=== PATIENT | female | born 1945 | race Caucasian/White ===

== ENCOUNTER → 2017-10-17 | Outpatient (CLI) | payer MEDICARE, BC ==
[~2017-10-17] MED LIST: CYTOXAN 50 PO; CYTOXAN PO; DESYREL 50MG50 MG PO; GLUCOTROL XL2.5 MG PO; LASIX 20MG TABL20 MG PO; LIPITOR 10MG10 MG PO; LOPRESSOR 225 MG/TAB PO; NORVASC 10MG10 MG PO; NORVASC 5MG5 MG/TAB PO; PRILOSEC 20MG20 MG PO; SYNTHROID0.125 MG/T PO; VASOTEC20 MG PO; ZYRTEC 10MG10 MG PO
== END ==
LOC: COL.VAS 13:45
DX: Z01.810 Encounter for preprocedural cardiovascular examination (principal); I37.1 Nonrheumatic pulmonary valve insufficiency; I77.819 Aortic ectasia, unspecified site; I63.9 Cerebral infarction, unspecified; I10 Essential (primary) hypertension